=== PATIENT | male | born 1965 | race Caucasian/White ===

== ENCOUNTER 2018-05-15 15:21 | Emergency (ER) | payer OTHER ==
[~2018-05-15] VITALS: Ht 160 cm; Wt 65.9 kg
[2018-05-15] MEDS ORDERED: KETOROLAC TROMETHAMINE 60 MG/2 ML VIAL IM ONE (17:00)
[2018-05-15] MEDS ORDERED: PredniSONE 20 MG TABLET PO ONE (17:00)
[2018-05-15] MEDS ORDERED: DIAZEPAM 5 MG TABLET PO ONE (17:00)
[2018-05-15 17:31] VITALS: BP 148/88
== END 2018-05-15 17:32 | disposition home or self-care (01) ==
LOC: EMS 15:22
DX: S39.012A Strain of muscle, fascia and tendon of lower back, initial encounter (principal); X58.XXXA Exposure to other specified factors, initial encounter; Y93.89 Activity, other specified; Y92.89 Other specified places as the place of occurrence of the external cause; Y99.8 Other external cause status
CPT/HCPCS: 96372; 99283; J1885; J7512

== ENCOUNTER 2018-07-15 09:42 | Emergency (ER) | payer OTHER ==
[~2018-07-15] VITALS: Ht 160 cm; Wt 71.8 kg
[2018-07-15] MEDS ORDERED: LIDOCAINE 5% TRANSDERMAL PATCH TD ONE (11:00)
[2018-07-15] MEDS ORDERED: KETOROLAC TROMETHAMINE 30 MG/ML VIAL IVP ONE (11:00)
[2018-07-15] MEDS ORDERED: CYCLOBENZAPRINE HCL 10 MG TABLET PO ONE (11:00)
[2018-07-15] MEDS ORDERED: ACETAMINOPHEN 500 MG TABLET PO ONE (11:00)
[2018-07-15] MEDS ORDERED: MORPHINE SULFATE 4 MG/ML SYRINGE IVP ONE (12:45)
[2018-07-15 13:19] VITALS: BP 151/91
== END 2018-07-15 15:29 | disposition home or self-care (01) ==
LOC: EMS 09:43
DX: M54.5 Low back pain (principal)
CPT/HCPCS: 72100; 96374; 96375; 99283; J1885; J2270